=== PATIENT | female | born 1970 | race Caucasian/White ===

== ENCOUNTER 2021-10-30 12:56 | Emergency (ER) | payer OTHER, SELFPAY ==
[2021-10-30 12:57] VITALS: BP 94/51; PULSE 104; RESP 17; TEMP 36.3; O2SAT 100; BMI 21.9
--- NOTE | 2021-10-30 12:59 | RAD_ITS ---
STUDY: X-RAY - UNILATERAL RIBS ( RIGHT ) WITH CHEST REASON FOR EXAM: Female, 51 years old. FALL TECHNIQUE - RIBS: 2 view(s) of the ribs. TECHNIQUE - CHEST: Single PA view of the chest. COMPARISON: None. FINDINGS - RIBS: Acute fracture the lateral right fourth and fifth ribs. FINDINGS - CHEST: The lungs are clear and expanded. There is no demonstrated pleural abnormality. Normal size heart. Normal mediastinum and nancy. Normal visualized pulmonary arteries. Normal visualized aortic arch and descending thoracic aorta. Normal visualized thoracic spine. Normal visualized ribs, clavicles, and shoulders. There is no demonstrated abnormality of the visualized soft tissue structures of the upper abdomen. RAD/Ribs Uni Min 3V w/PA Chest IMPRESSION: RIBS: Acute fractures of the lateral right fourth and fifth ribs. CHEST: No pneumothorax or hemothorax. Electronically Signed: Edgar Rosario MD at 13:24 EST Tel , Service support ,
--- NOTE | 2021-10-30 12:59 | RAD_ITS ---
STUDY: X-RAY - RIGHT SHOULDER REASON FOR EXAM: Female, 51 years old. FALL, shoulder pain TECHNIQUE: 4 view(s) of the shoulder. COMPARISON: None. FINDINGS: Normal glenohumeral articulation. Normal acromioclavicular joint. Normal acromion. Normal humeral head and visualized proximal humerus. The soft tissue structures are unremarkable. Normal visualized pulmonary apex. Fractures of the lateral right fourth and fifth ribs. RAD/Shoulder min 2 Views IMPRESSION: Normal x-ray examination of the shoulder. Fractures of the lateral right fourth and fifth ribs. Electronically Signed: Edgar Rosario MD at 13:22 EST Tel , Service support ,
--- NOTE | 2021-10-30 14:29 | EDS_ITS ---
HPI History of Present Illness Chief Complaint: Fall Detail of Chief Complaint: Fall with injury to back and right shoulder Informant: patient Narrative Narrative: Patient presents to the emergency department after sustaining a fall today. Patient states that she had gone up into her loft and on the way down the ladder slipped and she fell onto her back on the concrete. The loft is 8 feet high but she was already coming down so she believes she may have only fall about 5 or 6 feet. She does not think she hit her head. There is no loss of consciousness. She denies any neck pain. She denies any abdominal pain. She denies shortness of breath. She complains of pain with deep breath however. Patient unsure of her last tetanus. PFSH PFSH Home Medications magnesium oxide 500 mg PO DAILY 04/26/17 [History Last Taken Unknown] oxycodone-acetaminophen 1 - 2 tab PO Q4H PRN PRN #30 tab 04/27/17 [Rx Last Taken Unknown] hydrocodone-acetaminophen 1 tab PO Q4H PRN PRN 4 Days #20 tablet 10/30/21 [Rx Last Taken Unknown] Allergy/AdvReac Type Severity Reaction Status Date / Time No Known Allergies Allergy Verified 04/26/17 10:03 Social History Smoking Status: Never smoker [facility] ED Constitutional Constitutional ED: Reports systems reviewed and no addt'l complaints, except as documented; Denies body ache(s), change in weight or chills Eyes Eyes: Denies acute decrease in peripheral vision, change in vision, double visi on or loss of vision ENT ENT ED: Reports none; Denies ear pain, lip swelling, loss taste/smell, neck pa in, otalgia or sore throat Cardiovascular Cardiovascular: Reports none; Denies abdominal pain, chest pain with activity, leg edema, lightheadedness, palpitations, rapid heart rate or syncope Respiratory/Chest Respiratory/Chest: Reports none; Denies change in mental status, dry cough, dyspnea, hemoptysis, shortness of breath at rest or shortness of breath with exertion Gastrointestinal Gastrointestinal: Reports none; Denies abdominal pain, change in stool character, diarrhea, hematemesis, hematochezia, melena, rectal bleeding or vomiting Genitourinary Genitourinary ED: Reports none; Denies abdominal discomfort, anuria, dysuria, genital pain or polyuria Musculoskeletal Musculoskeletal: Reports none, back pain and other Details: Right shoulder pain ; Denies arthralgias, difficulty walking, extremity pain, muscle weakness or myalgias Integumentary Reports none; Denies abscess or rash Neurologic Neurologic: Reports none; Denies abnormal gait, confusion, focal weakness, frequent falls, headache(s), loss of vision, numbness, paresthesias, radicular pain, vertigo or weakness Psychiatric Psychiatric: Reports systems reviewed and no addt'l complaints, except as documented and none; Denies behavioral changes, confusion, difficulty concentrating, hallucinations, suicidal ideation, tactile hallucinations or visual hallucinations Endocrine Endocrinology: Denies none, cold intolerance, excessive sweating, fatigue or heat intolerance Hematologic/Lymphatic Hematologic/Lymphatic: Reports none; Denies anemia, easy bleeding or easy bruising Allergic/Immunologic Allergic/Immunologic ED: Denies as per HPI, none, lip swelling, mouth swelling, throat swelling, tongue swelling or hives EXAM Physical Exam Const Vital Signs: 10/30/21 12:57 Temperature 97.4 F L Temperature Source Temporal Pulse Rate 104 H Respiratory Rate 17 Blood Pressure 94/51 L Blood Pressure Mean 65 Pulse Ox 100 Oxygen Delivery Method Room Air Positive well nourished and well developed General Appearance ED: well developed and NAD HEENT Reports TM's clear and moist mucous membranes normocephalic and atraumatic; Negative for trauma or tenderness Tympanic Membrane ED: Yes TM's clear Eyes PERRL and EOMs intact bilaterally General Eye ED: Negative for pale conjunctiva or scleral icterus Neck no lymphadenopathy, supple and no JVD General: Negative for tenderness Chest Wall inspection of chest normal and palpation of chest normal Chest: Negative for tenderness Resp normal respiratory effort and clear to auscultation bilaterally Effort and Inspection: Negative for respiratory distress or pain with movement Auscultation: Negative for rhonchi, wheezes or diminished lung sounds Cardio regular rate, regular rhythm, S1 normal heart sound, S2 normal heart sound and no murmurs Peripheral Pulses: pulses 2+ throughout GI normal to inspection, nondistended, normoactive bowel sounds, soft to palpation, non-tender, non-distended and no masses Back/Spine no CVA tenderness and no thoracic nor lumbar tenderness Back/Spine Narrative: Evaluation of her back reveals superficial abrasion and contusion to right upper lateral mid ribs in the area of ribs 4 5 and 6. Area is tender to palpation. There is no crepitus or subcu emphysema. Extremity Extremity Narrative: Patient had superficial abrasion and contusion to the right tricep area. No bony tenderness on exam. She has good range of motion at the glenohumeral joint and no significant tenderness about the shoulder. General Extremety ED: Negative for edema General Extremity: Negative for edema Neuro oriented x3, CN's II-XII intact bilaterally, no sensory deficits noted and gait normal Sensorium / Orientation: awake, alert, oriented to person, oriented to place and oriented to time Motor Exam: strength 5/5 throughout and strength abnormal Psych mental status grossly normal Skin no rashes or lesions noted and no wounds MDM MDM MDM Narrative Medical decision making narrative: Due to the volume in the emergency department nurses via protocol ordered x-rays of the right ribs and chest x-ray as well as x-rays of the right shoulder before I evaluated the patient. Radiology felt patient had fractures of ribs 4 and 5 on the right without evidence of pneumothorax or hemothorax. X-rays of the shoulder were normal. Patient was given 1 Jordan p.o. Patient was able to urinate and there was no evidence of gross blood. At this point patient will be given a prescription for Jordan and an incentive spirometer. Patient advised to follow-up with her primary care physician within next 3 to 5 days. She is advised to return if worsening pain, fever, vomiting, increasing shortness of breath, hemoptysis, or condition should worsen anyway. Radiography Diagnostic Testing: Clinical Impression(s) from Imaging Studies Ribs w/Chest X-Ray 10/30/21 12:59 IMPRESSION: RIBS: Acute fractures of the lateral right fourth and fifth ribs. CHEST: No pneumothorax or hemothorax. Electronically Signed: Edgar Rosario MD at 13:24 EST Tel , Service support , Shoulder X-Ray 10/30/21 12:59 IMPRESSION: Normal x-ray examination of the shoulder. Fractures of the lateral right fourth and fifth ribs. Electronically Signed: Edgar Rosario MD at 13:22 EST Tel , Service support , 2 view x-rays of the right shoulder obtained interpreted by myself as no acute fractures or dislocations. X-rays of the ribs obtained interpreted by myself as fractures of ribs 4 and 5 without evidence of pneumothorax. Radiology was in agreement. Discharge Plan Triage Chief Complaint: Fall ED Provider: Arsh Herbert Dx/Rx/DC Orders Clinical Impression: Closed rib fracture, Fall Instructions: ED Rib Fracture Prescriptions: New hydrocodone-acetaminophen [hydrocodone-acetaminophen] 1 TABLET tablet 1 tab PO Q4H PRN PRN (Reason: Pain) 4 Days Qty: 20 RF: 0 No Action magnesium oxide 500 MG capsule 500 mg PO DAILY RF: 0 oxycodone-acetaminophen 1 TABLET tablet 1 - 2 tab PO Q4H PRN PRN (Reason: Pain) Qty: 30 RF: 0 Primary Care Provider: Em Dias Referrals: Em Dias MD [Primary Care Provider] - 3-5 Days Disposition Disposition: Home, Self Care
[2021-10-30] MEDS: HYDROcodone Bitartrate/Apap 5/325 Tablet PO (14:58)
[2021-10-30] MEDS: Diphth,Pertuss(Acell),Tet Vac 0.5 ML Vial IM (15:03)
== END 2021-10-30 15:28 | disposition home or self-care (01) ==
PROVIDERS: Emergency Provider Emergency Medicine; PCP Student in an Organized Health Care Education/Training Program
DX: S22.41XA Multiple fractures of ribs, right side, initial encounter for closed fracture (principal); S40.021A Contusion of right upper arm, initial encounter; Z23 Encounter for immunization; W11.XXXA Fall on and from ladder, initial encounter; Y93.9 Activity, unspecified; Y92.9 Unspecified place or not applicable; Y99.9 Unspecified external cause status
CPT/HCPCS: 71101; 73030; 90715; 99251; 99283; G0463